=== PATIENT | female | born 1935 | race Caucasian/White ===

== ENCOUNTER 2017-01-31 05:47 | Observation (INO) ==
[2017-01-31 06:37] LABS: Basophils % 0.4 %; Eosinophils % 0.2 %; Hematocrit 44.9 % (35.3-44.9); Immature Granulocytes % 0.4 % (0-4); Lymphocytes # 1.2 K/mcL (0.6-4.6); Lymphocytes % 13.5 %; Mean Corpuscular HGB Conc 33.4 g/dL (31.6-35.5); Mean Corpuscular Hemoglobin 31.6 pg (28.0-33.3); Mean Corpuscular Volume 94.7 fL (83.0-100.0); Mean Platelet Volume 9.7 fL (9.4-12.4); Monocytes # 0.5 K/mcL (0.0-1.3); Monocytes % 5.5 %; Neutrophils # 7.1 K/mcL (1.6-8.9); Platelet Count 217 K/mcL (140-400); Red Blood Count 4.74 M/mcL (3.82-4.97); Red Cell Distribution Width 12.5 % (11.5-14.5)
[2017-01-31 06:42] LABS: INR 1.1; Prothrombin Time 11.4 Seconds (9.4-12.1)
--- NOTE | 2017-01-31 06:50 | Emergency Department Note ---
Disposition Clinical Impression: Dizziness, Near syncope, Vertigo, DARVIN (acute kidney injury), Abnormal EKG Disposition: Admitted As Inpatient Condition: Fair Time of Disposition: 06:59 General Adult HPI - General Chief complaint: ED Dizziness Stated complaint: Dizziness Time Seen by Provider: 01/31/17 05:58 Source: patient Mode of arrival: private vehicle Limitations: no limitations Nursing Notes Reviewed: Yes Vital Signs Reviewed: Yes - History of Present Illness HPI Narrative: Patient is a very pleasant 81-year-old female that presents for chief complaint of progressive dizziness. She states that it is mostly a vertiginous sensation with associated nausea and vomiting, but is occasionally also described as lightheadedness and near syncope. She does not have any syncope. No falls or head injury. No symptoms below her neck such as chest pain, shortness of breath , abdominal pain, changes in bowel movements or urination, rashes or edema. No other recent illness or injury. She was seen by ear nose and throat this past week as she thought her ear may be causing her symptoms, but she had a negative evaluation by them. She has not tried any medication for her symptoms. She states that her symptoms were very severe this morning and she was unable to ambulate they were so bad. Within an hour, they have resolved completely. Denies any symptoms at this time. 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 He has a history of atrial fibrillation with pacemaker many years ago and states that she has had a negative stress test within the last 5-10 years. No history of heart disease, congestive heart failure. No history of stroke. Patient is on aspirin for her atrial fibrillation, but used to be on Coumadin which was stopped for a GI bleed. Pain Scale: 0 - Related Data Home Medications Medication Instructions Recorded Confirmed Aspirin [Ecotrin] 325 mg PO DAILY 01/31/17 01/31/17 Atenolol [Tenormin] 50 mg PO DAILY 01/31/17 01/31/17 Benazepril/Hydrochlorothiazide 1 each PO DAILY 01/31/17 01/31/17 [Lotensin Hct 10-12.5 mg Tablet] Cholecalciferol (Vitamin D3) 5,000 unit PO DAILY 01/31/17 01/31/17 [Vitamin D3] Digoxin [Lanoxin] 0.125 mg PO DAILY 01/31/17 01/31/17 Potassium 10 meq PO DAILY 01/31/17 01/31/17 Allergies Allergy/AdvReac Type Severity Reaction Status Date / Time No Known Allergies Allergy Verified 01/31/17 08:11 All systems ED: reviewed and negative except as stated. Past Medical History - Past Medical History Attestation: Yes The following information was validated with the patient. Source: patient Medical history: Reports: atrial fibrillation, hypertension Psychiatric history: Reports: no psych history - Social History Smoking Status: Former smoker Smokeless Tobacco Status: No Alcohol use: Reports: none Drug use: Reports: none Physical Exam - Head Head exam: atraumatic, normocephalic, normal inspection - Eye Eye exam: Present: normal appearance, PERRL, EOMI - ENT ENT exam: normal exam, normal oropharynx, mucous membranes moist - Neck Firmness consistent with patient's known history of throat cancer status post radiation. - Chest Chest inspection: Present: normal inspection, symmetric chest wall rise - Respiratory Respiratory exam: Clear to auscultation bilaterally without wheezes rales or rhonchi Cardiovascular Cardiovascular exam: Present: regular rate, normal rhythm, normal heart sounds - Abdominal Exam Abdominal exam: Present: soft, Non-Tender. Absent: tenderness, distention, guarding, rebound, rigidity - Extremities Exam Extremities exam: Present: normal inspection, full ROM - Back Exam Back exam: Present: normal inspection, full ROM. Absent: tenderness, CVA tenderness (R), CVA tenderness (L) - Neurological Exam Neurological exam: Present: alert, oriented X3, CN II-XII intact. Slight dysarthria which is baseline for the patient with her history of throat cancer. No motor or sensory deficits. Normal finger to nose, heel to eisenberg, and rapid motion. Normal gait, but Romberg is positive. - Psychiatric Psychiatric exam: Present: normal affect, normal mood - Skin Skin exam: Present: warm, dry, intact, normal color - General Limitations: no limitations General appearance: alert, in no apparent distress Course - Reevaluation(s) Reevaluation #1: Patient signed out to oncoming resident Dr. Orellana. He will follow patient's lab and imaging results. Patient stable at this time and is agreeable to plan of admission after results returned. Time: 06:55 Vital Signs Temperature 97.7 F 01/31/17 05:48 Pulse Rate 91 01/31/17 05:48 Respiratory Rate 16 01/31/17 05:48 Blood Pressure 140/78 01/31/17 05:48 O2 Sat by Pulse Oximetry 96 01/31/17 05:48 Temperature 97.9 F 01/31/17 23:22 Pulse Rate 66 01/31/17 23:22 Respiratory Rate 14 01/31/17 23:22 Blood Pressure 168/82 01/31/17 23:22 O2 Sat by Pulse Oximetry 95 01/31/17 23:22 Oxygen Delivery Oxygen Delivery Room Air Medical Decision Making - Lab Data Result diagrams: 01/31/17 06:25 01/31/17 06:25 Lab Results 01/31/17 01/31/17 01/31/17 Range/Units 06:25 06:25 06:25 WBC 8.9 (4.3-11.1) K/mcL RBC 4.74 (3.82-4.97) M/mcL Hgb 15.0 (11.5-15.4) g/dL Hct 44.9 (35.3-44.9) % MCV 94.7 (83.0-100.0) fL MCH 31.6 (28.0-33.3) pg MCHC 33.4 (31.6-35.5) g/dL RDW 12.5 (11.5-14.5) % Plt Count 217 (140-400) K/mcL MPV 9.7 (9.4-12.4) fL Immature Gran % 0.4 (0-4) % Seg Neutrophils % 80.0 % Lymphocytes % 13.5 % Monocytes % 5.5 % Eosinophils % 0.2 % Basophils % 0.4 % Neutrophils # 7.1 (1.6-8.9) K/mcL Lymphocytes # 1.2 (0.6-4.6) K/mcL Monocytes # 0.5 (0.0-1.3) K/mcL Eosinophils # 0.0 (0.0-0.6) K/mcL Basophils # 0.0 (0.0-0.2) K/mcL PT 11.4 (9.4-12.1) Seconds INR 1.1 Sodium 139 (136-145) mEq/L Potassium 3.6 (3.5-4.5) mEq/L Chloride 101 (98-109) mEq/L Carbon Dioxide 28 (19-29) mEq/L BUN 24 H (7-20) mg/dL Creatinine 1.13 H (0.57-1.11) mg/dL Est GFR ( Amer) 56 L (> 60) Est GFR (Non-Af Amer) 46 L (> 60) BUN/Creatinine Ratio 21 (6-26) Glucose 115 H (70-99) mg/dL Calculated Osmolality 293 (280-300) Calcium 9.8 (8.6-10.8) mg/dL Total Bilirubin 1.2 (0.2-1.2) mg/dL AST 24 (5-34) Units/L ALT 17 (0-55) Units/L Alkaline Phosphatase 66 (38-126) Units/L Troponin I (0-0.03) ng/mL Serum Total Protein 7.4 (6.0-8.3) g/dL Albumin 3.8 (3.5-5.0) g/dL Globulin 3.6 H (2.4-3.5) g/dL Albumin/Globulin Ratio 1.1 (1.1-2.2) Urine Color (Yellow) Urine Clarity (Clear) Urine pH (5.0-8.0) pH Units Ur Specific [place] (1.010-1.025) Urine Protein (Neg-Trace) mg/dL Urine Glucose (UA) (Normal) mg/dL Urine Ketones (Negative) mg/dL Urine Blood (Negative) Urine Nitrite (Negative) Urine Bilirubin (Negative) Urine Urobilinogen (Normal) mg/dL Ur Leukocyte Esterase (Negative) Urine Microscopic RBC (0-3) per hpf Urine Microscopic WBC (0-3) per hpf Ur Squamous Epith Cells (None-Few) per lpf Urine Bacteria (None-Few) per hpf Hyaline Casts (None-Few) per lpf Ur Culture Indicated? (NO) 01/31/17 01/31/17 Range/Units 06:25 08:05 WBC (4.3-11.1) K/mcL RBC (3.82-4.97) M/mcL Hgb (11.5-15.4) g/dL Hct (35.3-44.9) % MCV (83.0-100.0) fL MCH (28.0-33.3) pg MCHC (31.6-35.5) g/dL RDW (11.5-14.5) % Plt Count (140-400) K/mcL MPV (9.4-12.4) fL Immature Gran % (0-4) % Seg Neutrophils % % Lymphocytes % % Monocytes % % Eosinophils % % Basophils % % Neutrophils # (1.6-8.9) K/mcL Lymphocytes # (0.6-4.6) K/mcL Monocytes # (0.0-1.3) K/mcL Eosinophils # (0.0-0.6) K/mcL Basophils # (0.0-0.2) K/mcL PT (9.4-12.1) Seconds INR Sodium (136-145) mEq/L Potassium (3.5-4.5) mEq/L Chloride (98-109) mEq/L Carbon Dioxide (19-29) mEq/L BUN (7-20) mg/dL Creatinine (0.57-1.11) mg/dL Est GFR ( Amer) (> 60) Est GFR (Non-Af Amer) (> 60) BUN/Creatinine Ratio (6-26) Glucose (70-99) mg/dL Calculated Osmolality (280-300) Calcium (8.6-10.8) mg/dL Total Bilirubin (0.2-1.2) mg/dL AST (5-34) Units/L ALT (0-55) Units/L Alkaline Phosphatase (38-126) Units/L Troponin I 0.00 (0-0.03) ng/mL Serum Total Protein (6.0-8.3) g/dL Albumin (3.5-5.0) g/dL Globulin (2.4-3.5) g/dL Albumin/Globulin Ratio (1.1-2.2) Urine Color Yellow (Yellow) Urine Clarity Clear (Clear) Urine pH 6.0 (5.0-8.0) pH Units Ur Specific [place] 1.022 (1.010-1.025) Urine Protein Negative (Neg-Trace) mg/dL Urine Glucose (UA) Normal (Normal) mg/dL Urine Ketones Negative (Negative) mg/dL Urine Blood Negative (Negative) Urine Nitrite Negative (Negative) Urine Bilirubin Negative (Negative) Urine Urobilinogen Normal (Normal) mg/dL Ur Leukocyte Esterase Small H (Negative) Urine Microscopic RBC 0-3 (0-3) per hpf Urine Microscopic WBC 3-5 H (0-3) per hpf Ur Squamous Epith Cells Many H (None-Few) per lpf Urine Bacteria None Seen (None-Few) per hpf Hyaline Casts None Seen (None-Few) per lpf Ur Culture Indicated? YES A (NO) - EKG Data EKG #1 EKG attestation: Yes I reviewed and interpreted this EKG. EKG results narrative: Sinus tachycardia at 110 with first-degree AV block with PA interval 218. No ST elevation, there is mild lateral depression. No pathologic Q waves. No old EKG available for comparison. Repeat EKG shows normal sinus rhythm at 67 with PA of 228 and improved, but still present minimal ST depression in the lateral leads. No ST elevation. Attestation Statement - Attestation Attestation: I examined this patient and my medical decision-making was reviewed with the SECURITY SYSTEMS TECHNICIAN/PA/Advanced Practice Nurse/Resident Physician. I agree with the documented findings, disposition and treatment plan as described except to the extent set forth below. 81 yo female presents with concerns of near syncope. Pt describes having vertiginous symptoms every morning which eventually fade throughout the day. This morning she was unable to ambulate and had near syncopal symptoms. CT of the head does not show significant mass or ICH. ECG shows minimal ST depression in the lateral leads. Pt signed out to day physician pending labs and likely admission to the hospital for further evaluation.
[2017-01-31 06:51] LABS: Albumin 3.8 g/dL (3.5-5.0); Albumin/Globulin Ratio 1.1 (1.1-2.2); Bilirubin,Total 1.2 mg/dL (0.2-1.2); Calcium 9.8 mg/dL (8.6-10.8); Globulin 3.6 g/dL (2.4-3.5); Potassium 3.6 mEq/L (3.5-4.5); Total Protein 7.4 g/dL (6.0-8.3)
--- NOTE | 2017-01-31 07:11 | Emergency Department Note ---
Disposition Clinical Impression: Dizziness, Near syncope, Vertigo, DARVIN (acute kidney injury), Abnormal EKG Disposition: Admitted As Inpatient Condition: Fair Referrals: Sekou Jaeger MD [Primary Care Provider] - Forms: ED Satisfaction Letter General Adult HPI - General Chief complaint: ED Dizziness Stated complaint: Dizziness Time Seen by Provider: 01/31/17 05:58 Source: patient Mode of arrival: private vehicle Limitations: no limitations - History of Present Illness HPI Narrative: Please see prior providers to documentation for full history and physical. This patient was signed out upon shift change. Pain Scale: 0 - Related Data Home Medications Medication Instructions Recorded Confirmed Aspirin [Ecotrin] 325 mg PO DAILY 01/31/17 01/31/17 Atenolol [Tenormin] 50 mg PO DAILY 01/31/17 01/31/17 Benazepril/Hydrochlorothiazide 1 tab PO DAILY 01/31/17 01/31/17 [Ziac 5-6.25 mg Tab] Cholecalciferol (Vitamin D3) 5,000 unit PO DAILY 01/31/17 01/31/17 [Vitamin D3] Digoxin [Lanoxin] 0.125 mg PO DAILY 01/31/17 01/31/17 Potassium 10 meq PO DAILY 01/31/17 01/31/17 Allergies Allergy/AdvReac Type Severity Reaction Status Date / Time No Known Allergies Allergy Verified 01/31/17 08:11 Past Medical History - Past Medical History Medical history: Reports: atrial fibrillation, hypertension Psychiatric history: Reports: no psych history - Social History Smoking Status: Former smoker Smokeless Tobacco Status: No Alcohol use: Reports: none Drug use: Reports: none Physical Exam - General Limitations: no limitations General appearance: alert, in no apparent distress - Head Head exam: atraumatic, normal inspection - Eye Eye exam: Present: normal appearance, PERRL, EOMI. Absent: nystagmus - ENT ENT exam: normal exam, normal oropharynx - Neck Neck exam: Present: normal inspection, trachea midline - Chest Chest inspection: Present: normal inspection, symmetric chest wall rise - Respiratory Respiratory exam: Present: normal lung sounds bilaterally. Absent: respiratory distress - Cardiovascular Cardiovascular exam: Present: regular rate, normal rhythm - Abdominal Exam Abdominal exam: Present: soft, Non-Tender - Extremities Exam Extremities exam: Present: normal inspection. Absent: pedal edema - Back Exam Back exam: Present: normal inspection - Neurological Exam Neurological exam: Present: alert, oriented X3, CN II-XII intact - Expanded Neurological Exam Patient oriented to: Present: person, place, time Cerebellar function: finger to nose: Normal Motor strength - LUE: 5/5 Motor strength - RUE: 5/5 Motor strength - LLE: 5/5 Motor strength - RLE: 5/5 Coma Scale Eye Opening: Spontaneous Coma Scale Motor Response: Obeys Commands Coma Scale Verbal Response: Oriented Coma Scale Total: 15 - Skin Skin exam: Present: warm, dry, intact, normal color Course Course Narrative: Patient seen and examined upon arrival. 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 Notes several episodes of emesis. Patient also has a history of A. fib not on anticoagulation due to GI bleed. She states symptoms have slightly improved at the time of my examination. Awaiting patient 's radiology results as well as lab work. Disposition admission. - Reevaluation(s) Reevaluation #1: Patient denies any needs at this time. Patient's resting comfortably in no acute distress. Updated patient plan of care. Patient's head CT was negative. Time: 08:08 Vital Signs Temperature 97.7 F 01/31/17 05:48 Pulse Rate 91 01/31/17 05:48 Respiratory Rate 16 01/31/17 05:48 Blood Pressure 140/78 01/31/17 05:48 O2 Sat by Pulse Oximetry 96 01/31/17 05:48 Temperature 97.7 F 01/31/17 05:48 Pulse Rate 67 01/31/17 08:22 Respiratory Rate 16 01/31/17 08:22 Blood Pressure 130/83 01/31/17 08:22 O2 Sat by Pulse Oximetry 94 01/31/17 08:22 Oxygen Delivery Oxygen Delivery Room Air Medical Decision Making - [facility] Narrative Medical decision making narrative: 81-year-old female will be admitted for vertiginous symptoms. Patient describes her symptoms as true vertigo with feeling of floating. Patient states she does have a history of seen in past which is worsened in the past 24 hours. Note several episodes of emesis. Feels unsteady on her feet. Note known head injury or trauma. Patient's workup was initiated by primary provider. Patient had basic lab work and cleaning a troponin, EKG and chest x- ray as well as a head CT. Patient denied any need for vertigo symptoms in the ER. The patient's neuro exam was essentially nonfocal. Patient did have slight unsteadiness on her feet with Romberg. Patient does have some mild dysarthria related to laryngeal cancer her baseline. Patient will be admitted to the hospital service for further evaluation and monitoring. Concerns about central cause of vertigo symptoms. Patient will get a baby ASA and be admitted for evaluation of central cause of vertigo and further cardiology monitoring as the patient does have EKG changes. Patient will be admitted. All questions were answered at bedside during the emergency department stay. Awaiting dig level at the time of admission to the hospital. - Lab Data Lab results reviewed: Yes I reviewed the patient's lab results. Result diagrams: 01/31/17 06:25 01/31/17 06:25 Lab Results 01/31/17 01/31/17 01/31/17 Range/Units 06:25 06:25 06:25 WBC 8.9 (4.3-11.1) K/mcL RBC 4.74 (3.82-4.97) M/mcL Hgb 15.0 (11.5-15.4) g/dL Hct 44.9 (35.3-44.9) % MCV 94.7 (83.0-100.0) fL MCH 31.6 (28.0-33.3) pg MCHC 33.4 (31.6-35.5) g/dL RDW 12.5 (11.5-14.5) % Plt Count 217 (140-400) K/mcL MPV 9.7 (9.4-12.4) fL Immature Gran % 0.4 (0-4) % Seg Neutrophils % 80.0 % Lymphocytes % 13.5 % Monocytes % 5.5 % Eosinophils % 0.2 % Basophils % 0.4 % Neutrophils # 7.1 (1.6-8.9) K/mcL Lymphocytes # 1.2 (0.6-4.6) K/mcL Monocytes # 0.5 (0.0-1.3) K/mcL Eosinophils # 0.0 (0.0-0.6) K/mcL Basophils # 0.0 (0.0-0.2) K/mcL PT 11.4 (9.4-12.1) Seconds INR 1.1 Sodium 139 (136-145) mEq/L Potassium 3.6 (3.5-4.5) mEq/L Chloride 101 (98-109) mEq/L Carbon Dioxide 28 (19-29) mEq/L BUN 24 H (7-20) mg/dL Creatinine 1.13 H (0.57-1.11) mg/dL Est GFR ( Amer) 56 L (> 60) Est GFR (Non-Af Amer) 46 L (> 60) BUN/Creatinine Ratio 21 (6-26) Glucose 115 H (70-99) mg/dL Calculated Osmolality 293 (280-300) Calcium 9.8 (8.6-10.8) mg/dL Total Bilirubin 1.2 (0.2-1.2) mg/dL AST 24 (5-34) Units/L ALT 17 (0-55) Units/L Alkaline Phosphatase 66 (38-126) Units/L Troponin I (0-0.03) ng/mL Serum Total Protein 7.4 (6.0-8.3) g/dL Albumin 3.8 (3.5-5.0) g/dL Globulin 3.6 H (2.4-3.5) g/dL Albumin/Globulin Ratio 1.1 (1.1-2.2) Urine Color (Yellow) Urine Clarity (Clear) Urine pH (5.0-8.0) pH Units Ur Specific [place] (1.010-1.025) Urine Protein (Neg-Trace) mg/dL Urine Glucose (UA) (Normal) mg/dL Urine Ketones (Negative) mg/dL Urine Blood (Negative) Urine Nitrite (Negative) Urine Bilirubin (Negative) Urine Urobilinogen (Normal) mg/dL Ur Leukocyte Esterase (Negative) Urine Microscopic RBC (0-3) per hpf Urine Microscopic WBC (0-3) per hpf Ur Squamous Epith Cells (None-Few) per lpf Urine Bacteria (None-Few) per hpf Hyaline Casts (None-Few) per lpf Ur Culture Indicated? (NO) 01/31/17 01/31/17 Range/Units 06:25 08:05 WBC (4.3-11.1) K/mcL RBC (3.82-4.97) M/mcL Hgb (11.5-15.4) g/dL Hct (35.3-44.9) % MCV (83.0-100.0) fL MCH (28.0-33.3) pg MCHC (31.6-35.5) g/dL RDW (11.5-14.5) % Plt Count (140-400) K/mcL MPV (9.4-12.4) fL Immature Gran % (0-4) % Seg Neutrophils % % Lymphocytes % % Monocytes % % Eosinophils % % Basophils % % Neutrophils # (1.6-8.9) K/mcL Lymphocytes # (0.6-4.6) K/mcL Monocytes # (0.0-1.3) K/mcL Eosinophils # (0.0-0.6) K/mcL Basophils # (0.0-0.2) K/mcL PT (9.4-12.1) Seconds INR Sodium (136-145) mEq/L Potassium (3.5-4.5) mEq/L Chloride (98-109) mEq/L Carbon Dioxide (19-29) mEq/L BUN (7-20) mg/dL Creatinine (0.57-1.11) mg/dL Est GFR ( Amer) (> 60) Est GFR (Non-Af Amer) (> 60) BUN/Creatinine Ratio (6-26) Glucose (70-99) mg/dL Calculated Osmolality (280-300) Calcium (8.6-10.8) mg/dL Total Bilirubin (0.2-1.2) mg/dL AST (5-34) Units/L ALT (0-55) Units/L Alkaline Phosphatase (38-126) Units/L Troponin I 0.00 (0-0.03) ng/mL Serum Total Protein (6.0-8.3) g/dL Albumin (3.5-5.0) g/dL Globulin (2.4-3.5) g/dL Albumin/Globulin Ratio (1.1-2.2) Urine Color Yellow (Yellow) Urine Clarity Clear (Clear) Urine pH 6.0 (5.0-8.0) pH Units Ur Specific [place] 1.022 (1.010-1.025) Urine Protein Negative (Neg-Trace) mg/dL Urine Glucose (UA) Normal (Normal) mg/dL Urine Ketones Negative (Negative) mg/dL Urine Blood Negative (Negative) Urine Nitrite Negative (Negative) Urine Bilirubin Negative (Negative) Urine Urobilinogen Normal (Normal) mg/dL Ur Leukocyte Esterase Small H (Negative) Urine Microscopic RBC 0-3 (0-3) per hpf Urine Microscopic WBC 3-5 H (0-3) per hpf Ur Squamous Epith Cells Many H (None-Few) per lpf Urine Bacteria None Seen (None-Few) per hpf Hyaline Casts None Seen (None-Few) per lpf Ur Culture Indicated? YES A (NO) - Radiology Data Radiology results reviewed: Yes I reviewed the patient's radiology results. Chest X-Ray 01/31/17 06:05 IMPRESSION: No acute process. D/ / Vitor Trujillo MD / Vitor Trujillo MD Interpreting Provider: Vitor Trujillo MD Head CT 01/31/17 06:23 IMPRESSION: No acute intracranial abnormality. 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 Nimesh Kelley Repor Time: 08:09 Attestation Statement - Attestation Attestation: I examined this patient and my medical decision-making was reviewed with the SNACK BAR ATTENDANT/PA/Advanced Practice Nurse/Resident Physician. I agree with the documented findings, disposition and treatment plan as described except to the extent set forth below. Patient to ED with dizziness. States she is feeling better at this time. Was signed out pending labs and admission. Patient admitted to medicine. Digoxin level still pending at the time of admission.
[2017-01-31] MEDS ORDERED: Acetaminophen 325 MG TABLET PO PRN (08:07)
[2017-01-31] MEDS ORDERED: Ondansetron 4 MG/2 ML VIAL IVP PRN (08:07)
[2017-01-31] MEDS ORDERED: Aspirin 81 MG TAB.CHEW PO ONE (08:07)
[2017-01-31] MEDS ORDERED: Naloxone 0.4 MG/ML INJ IVP PRN (08:07)
[2017-01-31] MEDS ORDERED: Aspirin 325 MG TABLET PO ONE (08:12)
[2017-01-31 08:15] LABS: Bilirubin,Urine Negative (Negative); Blood,Urine Negative (Negative); Clarity,Urine Clear (Clear); Color,Urine Yellow (Yellow); Glucose,Urine (UA) Normal (Normal); Ketones,Urine Negative (Negative); Leukocyte Esterase,Urine Small (Negative); Nitrite,Urine Negative (Negative); Protein,Urine Negative (Neg-Trace); Specific Gravity,Urine 1.022 (1.010-1.025); Urobilinogen,Urine Normal (Normal)
[2017-01-31 08:18] LABS: Bacteria,Urine None Seen per hpf (None-Few); Hyaline Casts,Urine None Seen per lpf (None-Few); RBC,Urine 0-3 per hpf (0-3); Squamous Epithelial Cell,Urine Many per lpf (None-Few)
--- NOTE | 2017-01-31 09:13 | Internal Med History&Physical ---
Date of Encounter: 01/31/17 Time of Encounter: 09:11 Assessment and Plan (1) Vertigo Current visit: Yes Status: Acute Patient presents with vertigo that has been going on for 3 weeks that is intermittent without any specific precipitating factors. Patient has a history of atrial fibrillation and is not on full dose anticoagulation but is on aspirin 325 mg by mouth daily. Central nervous system exam is grossly intact. Given her history of atrial fibrillation and not on anticoagulation with vertigo , suspicion for posterior circulation CVA. Patient will be placed under observation. Telemetry. Will obtain MRI of the brain and brainstem to evaluate for cerebellar lesions. Meclizine when necessary. Zofran for nausea. Physical therapy, occupational therapy and speech therapy consults. Patient given information for online rehabilitation for vertigo. (2) HTN (hypertension) Current visit: Yes Status: Chronic Resume beta sivakumar. Hold TRISTAN inhibitor due to acute kidney injury. Resume after her renal function normalizes. Qualifiers: Hypertension type: essential hypertension Qualified Code(s): I10 - Essential (primary) hypertension (3) Atrial fibrillation Current visit: Yes Status: Chronic Patient is currently in sinus rhythm. She is on digoxin and beta sivakumar for her atrial fibrillation rate control. Digoxin level is being obtained as the patient and her digoxin toxicity that is the cause of tinnitus and vertigo. We will follow-up digoxin levels. Hold digoxin for now. Resume beta sivakumar. Patient is not on now for those and evaluation for atrial fibrillation. Her [id number] score is 4 (1 point each for hypertension and female sex and 2 points for her age) Patient is under the care of accounting systems analyst as an outpatient and is on aspirin 325 mg by mouth daily. Will continue the same. However, if the MRI demonstrates acute CVA, we will revisit the discussion regarding full dose anticoagulation. Qualifiers: Atrial fibrillation type: paroxysmal Qualified Code(s): I48.0 - Paroxysmal atrial fibrillation (4) DARVIN (acute kidney injury) Current visit: Yes Status: Acute Likely due to dehydration as the patient has had nausea due to her vertigo. Patient will be given intravenous fluids. Hold TRISTAN inhibitor. Follow-up renal function. Avoid nephrotoxic agents and hypotension. (5) Abnormal EKG Current visit: Yes Status: Acute Patient has nonspecific T-wave changes on her EKG. First set of troponins has been negative. We will cycle troponins. Will consider cardiology consult as the patient has elevation in her troponin level. Outpatient follow-up with cardiology regarding further management. Internal Medicine - H&P: HPI Chief complaint: Vertigo Admitted From: Emergency Dept Plans for Post Hospital Care: Home History of present illness: Ms. Curry is a 81 year old female who presented to the ER due to vertigo. She states that she has been having dizzy spells for about 3 weeks now. She describes it as a sensation of room spinning around her. She denies feeling lightheaded or sensation of passing out. She has had no syncopal episodes. She reports that the episodes of vertigo are intermittent and usually occur in the morning and resolve after a couple of hours. No aggravating or relieving factors. She reports having chronic nasal congestion and runny nose for which she is not getting any medication. She denies any postnasal drip. She does report chronic ear pain on the left side of the year. She also reports chronic tinnitus. She reports reduced hearing in the left ear. She states that on Wednesday morning she was seen by ENT. She states that her left ear canal was an accessible due to its size but overall, she was told by ENT that there was nothing grossly abnormal with her ears. She states that she went to bed at 11 PM Wednesday night and within a few minutes of lying down in bed, she felt unwell and started experiencing another explode of vertigo. She had another spell of vertigo yesterday morning that lasted a couple of hours. However, she states that she was able to perform multiple activities from yesterday afternoon and evening where she did not have any spells of vertigo. The spells of vertigo are associated with nausea but she denies any vomiting. She denies any chest pain, palpitations, coughing, wheezing, shortness of breath, fever or chills. She denies any diarrhea or constipation or abdominal pain. She denies any urinary symptoms. She states that she was diagnosed with atrial fibrillation around 8 years ago. At that time, she underwent ablation at [place]. However, during the procedure , she had slowing down of the heart rate and hence, she had a pacemaker placed. She had battery changed about 3 years ago. She states that she was placed on Xarelto immediately after the ablation. However, she took the medication only for about 1-2 months after the procedure. She is currently under the care of a accounting systems analyst and is currently on aspirin 325 mg for stroke prophylaxis due to her atrial fibrillation. Past Med Surg Social Fam HX - Past Medical History Attestation: Yes The following information was validated with the patient. Source: patient Medical history: atrial fibrillation, hypertension Psychiatric history: no psych history - Past Surgical History Surgical History: pacemaker/AICD (Pacemaker placement after atrial ablation for atrial fibrillation about 8 years ago), other (Radiation for her throat cancer) - Social History Smoking Status: Former smoker Smokeless Tobacco Status: No Alcohol use: none Drug use: none Current living situation: Home, With Family Activity Level: Independent ambulation Recent Out of Country Travel Within the Last 8 Weeks: No Exposure or Possible Exposure to Illness During Travel: No - Additional Family History Additional family history: Reviewed; not pertinent Internal Medicine - H&P: Meds Aspirin [Ecotrin] 325 mg PO DAILY 01/31/17 [History] Atenolol [Tenormin] 50 mg PO DAILY 01/31/17 [History] Benazepril/Hydrochlorothiazide [Lotensin Hct 10-12.5 mg Tablet] 1 each PO DAILY 01/31/17 [History] Cholecalciferol (Vitamin D3) [Vitamin D3] 5,000 unit PO DAILY 01/31/17 [History] Digoxin [Lanoxin] 0.125 mg PO DAILY 01/31/17 [History] Potassium 10 meq PO DAILY 01/31/17 [History] Allergies No Known Allergies Allergy (Verified 01/31/17 08:11) All Systems PM: A 10-system review of systems was performed and is negative for pertinent findings except as documented above in the HPI. Review of systems: 10 systems have been reviewed and are negative except as mentioned in the history of present illness - Constitutional Vitals: Temp Pulse Resp BP Pulse Ox 97.7 F 67 16 130/83 94 01/31/17 05:48 01/31/17 08:22 01/31/17 08:22 01/31/17 08:22 01/31/17 08:22 Exam: Gen.: Sitting in bed and consuming breakfast. No acute distress. Eyes: Pupils equal, round and reactive to light. Extraocular muscles intact. ENT: Moist mucous membranes. No oropharyngeal erythema or discharge. Chest: Clear to auscultation bilaterally. No adventitious sounds present. CVS: First and second heart sounds present. No murmurs, rubs or gallops. Pacemaker on the left side of the chest. Abdomen: Soft, nontender, nondistended. Bowel sounds present. No hepatosplenomegaly. Skin: No decubitus ulcers appreciated. SYSTEMS INTEGRATOR: Cranial nerves 2-12 intact. Power 5/5 in all 4 extremities. Finger-nose- finger test is normal. Psychiatric: Alert, awake and oriented to time, place and person. Lymphatic system: No lymphadenopathy appreciated Internal Med - H&P Results - Labs CBC & Chem 7: 01/31/17 06:25 01/31/17 06:25 - EKG Data -: EKG Interpreted by Myself EKG shows normal: sinus rhythm, intervals (First-degree AV block is present), ST -T waves (T-wave inversions in leads 1, 2, 3, aVF and V3 to V6) Rate: normal - EKG Data Prior EKG available for review: no - Diagnostic Studies CT scan - head Status: image reviewed by me (No acute intracranial hemorrhage or abnormality detected)
[2017-01-31] MEDS: Fluticasone Propionate Nasal 50 MCG/SPRAY BOTTLE NS SCH (11:43)
[2017-01-31] MEDS: 0.9 % Sodium Chloride 1,000 ML IVC SCH (11:51)
[2017-01-31] MEDS: Loratadine 10 MG TABLET PO SCH (19:58)
[2017-02-01] MEDS: 0.9 % Sodium Chloride 1,000 ML IVC SCH ×2 (00:43→14:41)
[2017-02-01 06:46] LABS: Chol/HDL Ratio 3.9 (0-4.9)
[2017-02-01] MEDS: Loratadine 10 MG TABLET PO SCH (08:15)
[2017-02-01] MEDS: Fluticasone Propionate Nasal 50 MCG/SPRAY BOTTLE NS SCH (08:15)
[2017-02-01 10:41] VITALS: BP 120/48
--- NOTE | 2017-02-01 15:44 | Discharge Summary ---
Date of Encounter: 02/01/17 Time of Encounter: 14:00 - Discharge Diagnosis (1) Near syncope Priority: Primary Status: Resolved Comments: Patient did not have any dizziness, vertigo, lightheadedness on the day of discharge. She was ambulatory without difficulties. Chest x-ray negative. Head CT negative. Acute kidney injury consistent with dehydration upon presentation also resolved. Unable to obtain MRI secondary to pacemaker. We will treat symptomatically with meclizine and have her follow up outpatient. (2) Dizziness Priority: Primary Status: Resolved (3) Abnormal urinalysis Priority: Primary Status: Ruled-out Comments: Urine culture negative. Patient denied dysuria. (4) Vertigo Priority: Primary Status: Acute (5) DARVIN (acute kidney injury) Priority: Primary Status: Resolved (6) Abnormal EKG Priority: Primary Status: Ruled-out Comments: Nonspecific changes noted on ECG. Troponins negative 3. Patient denied chest pain or shortness of breath throughout this admission. (7) HTN (hypertension) Priority: Secondary Status: Chronic Comments: Controlled, follow-up outpatient Qualifiers: Hypertension type: essential hypertension Qualified Code(s): I10 - Essential (primary) hypertension (8) Atrial fibrillation Priority: Secondary Status: Chronic Comments: Rate controlled. Patient was taking Xarelto, started to have gross hematuria so she stopped. She is on full strength aspirin. No indication to change at this time. Qualifiers: Atrial fibrillation type: paroxysmal Qualified Code(s): I48.0 - Paroxysmal atrial fibrillation - Discharge Medications Prescriptions: Fluticasone Propionate Nasal [Flonase] 50 mcg NS DAILY #1 bottle Loratadine [Claritin] 5 mg PO DAILY #15 tablet Meclizine [Antivert] 12.5 mg PO TID PRN #20 tablet PRN Reason: Vertigo Walker W Wheels [WHEELED WALKER] 1 each .ROUTE AD #1 each Home Medications: Aspirin [Ecotrin] 325 mg PO DAILY 01/31/17 [History] Atenolol [Tenormin] 50 mg PO DAILY 01/31/17 [History] Benazepril/Hydrochlorothiazide [Lotensin Hct 10-12.5 mg Tablet] 1 each PO DAILY 01/31/17 [History] Cholecalciferol (Vitamin D3) [Vitamin D3] 5,000 unit PO DAILY 01/31/17 [History] Digoxin [Lanoxin] 0.125 mg PO DAILY 01/31/17 [History] Potassium 10 meq PO DAILY 01/31/17 [History] Fluticasone Propionate Nasal [Flonase] 50 mcg NS DAILY #1 bottle 02/01/17 [Rx] Loratadine [Claritin] 5 mg PO DAILY #15 tablet 02/01/17 [Rx] Meclizine [Antivert] 12.5 mg PO TID PRN #20 tablet 02/01/17 [Rx] Walker W Wheels [WHEELED WALKER] 1 each .ROUTE AD #1 each 02/01/17 [Rx] Allergies/Adverse Reactions: Allergies No Known Allergies Allergy (Verified 01/31/17 08:11) Procedures/tests Complete & Pending: Procedures Performed prior 72 hours Category Date Time Status MR head/brain wo con [MR] Routine MRI 01/31/17 09:47 Ordered ECG 12 lead ECG [ECG] Routine Y 01/31/17 06:26 Completed Date of admission: 01/31/17 08:41 Primary care physician: Sekou Jaeger MD Consults: 01/31/17 09:47 Consult to Speech Therapy [CONS] Routine Comment: Evaluate, develop and implement POC Reason for Consult: Possible CVA Call Completed: No 02/01/17 11:28 Consult to Fabrication Supervisor [CONS] Routine Reason for SW Consult: PT recs possible HH vs vestibular rehab Discharging clinician: Irena Brown Anticipated date of discharge: 02/01/17 - Patient Status Disposition: Home, Self-Care Condition: Fair Functional capacity at discharge: uses cane/walker Overall status at discharge: patient is back to baseline - Discharge Instructions Follow Up With: Sekou Jaeger MD [Primary Care Provider] - 02/10/17 1:00 pm Additional Instructions: Follow-up with primary care provider as scheduled - Diet and Activity Activity: increase activity as tolerated Diet: low salt diet Hospital course: Ms. Curry is a 81 year old female with past medical history of atrial fibrillation not on anticoagulation, hypertension, pacemaker placement. Patient states she was diagnosed with atrial fibrillation proximal 98 years prior to presentation where she underwent an ablation in [place] however during the procedure she had slowing of her heart and a pacemaker was placed. Patient was started on Xarelto but developed gross hematuria so this medication was stopped and she was placed on a full-strength aspirin. She presented to the emergency department chief complaint is he spells 3 weeks. Patient stating she feels as if the room is spinning around her. She denies lightheadedness or presyncopal symptoms. Patient has not had any syncopal episodes. She reports the episodes of vertigo are intermittent and usually occur in the morning and resolve after couple hours. No aggravating or relieving factors. Patient has chronic nasal congestion and runny nose that she is does not take medication for. Patient also reported chronic ear pain on the left side of her ear as well as chronic tinnitis. She follows outpatient with an ENT provider. On the day of presentation, patient stating after she went to bed, within a few minutes of lying down in bed, that she started to feel unwell and started to experience another episode of vertigo. On the day of presentation, she had another episode of vertigo on the morning that lasted a couple hours which prompted her presentation to the emergency department. During that time however she was able to perform her activities of daily living. Workup in the emergency department unremarkable. Chest x-ray negative. Head CT negative. Patient was admitted to the hospitalist service for further evaluation and management. Initial plan was for the patient to have an MRI however her pacemaker was unable to tolerate an MRI. Patient was asymptomatic during her admission. She had no dizziness, vertigo, lightheadedness. She was ambulatory without limitations. She was evaluated by occupational therapy who surmised she had no needs. She was evaluated by physical therapy who recommended vestibular rehabilitation that will need to be set up by her primary care provider. They also recommended a front-wheeled walker for her to use at home. Her acute kidney Injury had resolved. Her symptoms improved after she was started on Claritin and Flonase for her nasal congestion. Recommended symptomatic treatment with Claritin, Flonase, and meclizine as needed and outpatient follow-up. She had no focal neurological weakness is present during this admission. She was discharged home in stable condition with close outpatient follow-up recommended. ITS Impressions Chest X-Ray 01/31/17 06:05 IMPRESSION: No acute process. D/ / Vitor Trujillo MD / Vitor Trujillo MD Interpreting Provider: Vitor Trujillo MD Head CT 01/31/17 06:23 IMPRESSION: No acute intracranial abnormality. Moderate chronic small vessel ischemic disease within the periventricular white matter D/ / Vitor Trujillo MD / Vitor Trujillo MD Interpreting Provider: Vitor Trujillo MD - Time Spent with Patient Total time spent providing and/or coordinating discharge services: - Constitutional Vitals: Temp Pulse Resp BP Pulse Ox 98.2 F 67 16 120/48 99 02/01/17 10:40 02/01/17 10:40 02/01/17 10:40 02/01/17 10:40 02/01/17 10:40 General appearance: Present: A&O X 3, pleasant, no acute distress, answers questions appropriately - Head Head exam: Present: atraumatic, normocephalic - Eye Eye exam: Present: PERRL, conjuntiva pink, sclera anicteric Pupils: Present: PERRL - Neck Neck exam general surgery: Present: supple, trachea midline. Absent: lymphadenopathy - Respiratory Respiratory exam: Present: CTAB. Absent: accessory muscle use, rales, respiratory distress, rhonchi, wheezes - Cardiovascular Cardiovascular exam: Present: RRR, +S1, +S2. Absent: diastolic murmur, gallop, rubs, systolic murmur - GI/Abdominal GI/Abdominal exam: Present: normal bowel sounds, soft, no peritoneal signs. Absent: distended, tenderness - Extremities Exam Extremities exam: Present: warm, radial pulses palpable and symetrical. Absent : calf tenderness, cyanotic, pedal edema - Neurological Exam Neurological exam: Present: alert, CN II-XII intact, normal gait, oriented X3, no focal deficits, strengths equal and symetr throughout. Absent: pronater drift, facial droop, speech deficit - Skin Skin exam: Present: dry, intact, normal color, warm
--- NOTE | 2017-02-01 17:02 | Electrocardiograph Report ---
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
== END 2017-02-01 18:50 | disposition home or self-care (01) ==
LOC: 3BNU 05:47 → EMEROO 05:47 → 3BNU 10:00
PROVIDERS: ADMIT Internal Medicine Sleep Medicine; ATTEND Nurse Practitioner Family